=== PATIENT | female | born 1990 ===

== ENCOUNTER 2018-07-07 16:39 | Observation (INO) ==
[2018-07-07 17:28] LABS: Bilirubin,Urine Negative (Negative); Blood,Urine Negative (Negative); Clarity,Urine Clear (Clear); Color,Urine Yellow (Yellow); Glucose,Urine (UA) 100 mg/dL (Normal); Ketones,Urine Negative (Negative); Leukocyte Esterase,Urine Negative (Negative); Nitrite,Urine Negative (Negative); Protein,Urine Negative (Neg-Trace); Specific Gravity,Urine 1.007 (1.010-1.025); Urobilinogen,Urine Normal (Normal)
[2018-07-07 17:37] LABS: Amphetamine Screen,Urine Negative ng/mL (Cutoff=1000); Barbiturate Screen,Urine Negative ng/mL (Cutoff=200); Benzodiazepines Screen,Urine Negative ng/mL (Cutoff=200); Cannabinoid Screen,Urine Negative ng/mL (Cutoff = 50); Cocaine Screen,Urine Negative ng/mL (Cutoff= 300); Opiate Screen,Urine Negative ng/mL (Cutoff=300); Phencyclidine Screen,Urine Negative ng/mL (Cutoff=25)
[2018-07-07] MEDS ORDERED: Terbutaline 1 MG/ML VIAL SQ ONE ×2 (17:57→18:05)
[2018-07-07 18:16] LABS: Candida DNA Not Detected (Not Detect); Gardnerella DNA Not Detected (Not Detect); Trichomonas DNA Not Detected (Not Detect)
--- NOTE | 2018-07-07 18:53 | Discharge Summary ---
Date of Encounter: 07/07/18 Time of Encounter: 18:52 - Discharge Diagnosis (1) 33 weeks gestation of Priority: Primary Status: Acute Comments: Admitted to observation for complaint of watery discharge and pressure (2) NST (non-stress test) reactive Priority: Secondary Status: Acute Comments: FHR 145 bpm, moderate variability, +15 x 15 accels, no decels. (3) uterine contractions in third trimester, antepartum Priority: Secondary Status: Acute Comments: Initially contractions were noted every 2-4 minutes with periods of high- frequency low amplitude uterine activity. 1 dose of subcutaneous Brethine was given and contractions resolved. Cervix is 1 cm thick and high without change in greater than one hour Plan of care discussed with Dr. Michel (4) Vaginal discharge during Priority: Secondary Status: Acute Comments: Patient with complaint of watery discharge since 9:30 this morning No fluid noted in vaginal vault on sterile speculum exam. Nitrazine negative, fern negative, vaginosis panel negative. Qualifiers: Trimester: third trimester Qualified Code(s): O26.893 - Other specified related conditions, third trimester; N89.8 - Other specified noninflammatory disorders of vagina - Discharge Medications Home Medications: Famotidine [Pepcid] 40 mg PO DAILY 07/07/18 [History] Pnv Cmb#21/Iron/Folic Acid [ Complete Caplet] 1 each PO DAILY 07/07/18 [History] Allergies/Adverse Reactions: Allergy/AdvReac Type Severity Reaction Status Date / Time No Known Allergies Allergy Verified 07/07/18 17:09 Data Procedures and tests throughout hospitalization: Laboratory Tests 07/07/18 07/07/18 07/07/18 17:10 17:10 17:10 Urine Color Yellow Urine Clarity Clear Urine pH 7.0 Ur Specific [place] 1.007 L Urine Protein Negative Urine Glucose (UA) 100 H Urine Ketones Negative Urine Blood Negative Urine Nitrite Negative Urine Bilirubin Negative Urine Urobilinogen Normal Ur Leukocyte Esterase Negative Ur Culture Indicated? NO Urine Opiates Screen Negative Ur Barbiturates Screen Negative Ur Phencyclidine Scrn Negative Ur Amphetamines Screen Negative U Benzodiazepines Scrn Negative Urine Cocaine Screen Negative U Marijuana (THC) Screen Negative Ur Drug Screen Interp See Below Sondra species DNA Not Detected Gardnerella DNA Probe Not Detected Trichomonas DNA Probe Not Detected Labs on day of discharge: Labs from last 24 hours 07/07/18 07/07/18 07/07/18 17:10 17:10 17:10 Urine Color Yellow Urine Clarity Clear Urine pH 7.0 Ur Specific [place] 1.007 L Urine Protein Negative Urine Glucose (UA) 100 H Urine Ketones Negative Urine Blood Negative Urine Nitrite Negative Urine Bilirubin Negative Urine Urobilinogen Normal Ur Leukocyte Esterase Negative Ur Culture Indicated? NO Urine Opiates Screen Negative Ur Barbiturates Screen Negative Ur Phencyclidine Scrn Negative Ur Amphetamines Screen Negative U Benzodiazepines Scrn Negative Urine Cocaine Screen Negative U Marijuana (THC) Screen Negative Ur Drug Screen Interp See Below Sondra species DNA Not Detected Gardnerella DNA Probe Not Detected Trichomonas DNA Probe Not Detected Date of admission: 07/07/18 16:39 Discharging clinician: Zari Flood Anticipated date of discharge: 07/07/18 - Patient Status Disposition: Home, Self-Care Condition: Good Functional capacity at discharge: independent ambulation Overall status at discharge: patient is progressing back to baseline - Discharge Instructions - Diet and Activity Activity: resume usual activities as tolerated Diet: regular diet Hospital Course [employer]PER[employer] Hospital course: Laurel is a at 33 weeks and 3 days who arrived today with complaints of watery discharge that started at 9:30 this morning. States she had to change her panties several times and then eventually put on a maxi pad. She denies bleeding and reports positive movement. She denies any problem with this up until now. She does deny contractions on arrival. Sterile speculum exam was completed with no pooling of fluid in the vaginal vault. Nitrazine was negative fern was negative sample was obtained for vaginosis panel and sent to the lab. Vaginosis panel results were also negative. Cervical exam was 1 thick and high there was no change in greater than an hour. Irregular contractions were noted on monitor. Dr. Michel was consulted and 1 dose of subcutaneous Brethine was ordered. Her contractions stopped after that dose and cervix was without change on recheck. Patient is to follow-up with her OB provider as previously scheduled for her routine care Time Attestation: Total time spent providing and/or coordinating discharge services: Time Spent: Less than 30 minutes Exam - Constitutional General appearance IM: A&O X 3, pleasant, no acute distress, answers questions appropriately - Respiratory Respiratory exam: Present: CTAB - Cardiovascular Cardiovascular exam IM: Present: RRR, +S1, +S2 - GI/Abdominal GI/Abdominal exam IM: normal bowel sounds - Rectal Rectal exam: deferred - Extremities Exam Extremities exam IM: Present: full ROM, normal capillary refill, normal inspection - Neurological Exam Neurological exam: alert, normal gait, oriented X3 - VTE Reasons for not Prescribing Prophylaxis: Treatment not Indicated - Low risk for VTE
== END 2018-07-07 19:19 | disposition home or self-care (01) ==
LOC: 1NENULAB
PROVIDERS: ADMIT Obstetrics & Gynecology; ATTEND Obstetrics & Gynecology

== ENCOUNTER 2018-07-29 11:32 | Observation (INO) ==
--- NOTE | 2018-07-29 14:29 | Event Note ---
Date of Encounter: 07/29/18 Time of Encounter: 14:27 Helen is a 28-year-old female at 36 weeks and 4 days, who presents to labor and delivery complaining of contractions. Patient states that they have been progressing. This patient has a history of a previous section for breech presentation. At her last ultrasound a few days ago baby was macrosomic at 7 pounds. Patient had been considering repeat section. At this point we had a discussion about . At this early gestation she states that she would like to consider having a vaginal delivery. If she goes full-term she wishes a repeat section. We had a long discussion about this. The risks, complications of a were discussed including uterine rupture, demise as well as risk of with mother. Patient understood all this completely and at this point would like to consider it. On examination her cervix was 1 cm thick and baby was high. Contractions are every 3-6 minutes. Patient will be monitored for cervical change and we will make a decision. If she does not make any cervical change after extended monitoring and ambulating she will be discharged to home.
[2018-07-29 17:11] LABS: Bilirubin,Urine Negative (Negative); Blood,Urine Negative (Negative); Clarity,Urine Clear (Clear); Color,Urine Yellow (Yellow); Glucose,Urine (UA) Normal (Normal); Ketones,Urine 40 mg/dL (Negative); Leukocyte Esterase,Urine Negative (Negative); Nitrite,Urine Negative (Negative); Protein,Urine 30 mg/dL (Neg-Trace); Specific Gravity,Urine 1.014 (1.010-1.025); Urobilinogen,Urine Normal (Normal)
[2018-07-29 17:14] LABS: Bacteria,Urine None Seen per hpf (None-Few); Hyaline Casts,Urine None Seen per lpf (None-Few); RBC,Urine 0-3 per hpf (0-3); Squamous Epithelial Cell,Urine Many per lpf (None-Few); WBC,Urine 0-3 per hpf (0-3)
[2018-07-29 17:21] LABS: Amphetamine Screen,Urine Negative ng/mL (Cutoff=1000); Barbiturate Screen,Urine Negative ng/mL (Cutoff=200); Benzodiazepines Screen,Urine Negative ng/mL (Cutoff=200); Cannabinoid Screen,Urine Negative ng/mL (Cutoff = 50); Cocaine Screen,Urine Negative ng/mL (Cutoff= 300); Opiate Screen,Urine Negative ng/mL (Cutoff=300); Phencyclidine Screen,Urine Negative ng/mL (Cutoff=25)
--- NOTE | 2018-07-29 17:25 | Event Note ---
Date of Encounter: 07/29/18 Time of Encounter: 17:24 Pt doing well. Nursing reports no cervical change. Pt wishes to go home. Will discharge to home. Pt to follow up in the office.
== END 2018-07-29 17:22 | disposition home or self-care (01) ==
LOC: 1NENULAB
PROVIDERS: ADMIT Obstetrics & Gynecology; ATTEND Obstetrics & Gynecology

== ENCOUNTER → 2018-08-03 08:22 | Observation (INO) ==
--- NOTE | 2018-08-06 18:33 | Event Note ---
Date of Encounter: 08/02/18 Time of Encounter: 16:00 Helen seen on labor and delivery complaining of contractions. Patient been placed on the monitor. Patient was monitored by nursing. Her cervix was checked on admission. She was paola very irregularly. There was actually no change in her cervix. They were mild in strength. Patient had reactive tracing. Patient was allowed to walk. She came back to the room and her cervix was rechecked. There is no change in her cervix. Patient understood that an order for her to be delivered she would have to have cervical change. As everything looked good patient was discharged to home and was asked to follow-up in the office on Monday.
== END | disposition home or self-care (01) ==
LOC: 1NENULAB
PROVIDERS: ADMIT Registered Nurse; ATTEND Registered Nurse

== ENCOUNTER 2018-08-06 13:33 | Inpatient (IN) ==
[2018-08-06] MEDS ORDERED: Famotidine 20 MG/2 ML VIAL IVP ONE (14:01)
[2018-08-06] MEDS ORDERED: Metoclopramide 10 MG/2 ML VIAL IVP ONE (14:01)
[2018-08-06] MEDS ORDERED: Ringers Solution, Lactated 1,000 ML IVC ONE (14:01)
[2018-08-06 15:07] LABS: Amphetamine Screen,Urine Negative ng/mL (Cutoff=1000); Barbiturate Screen,Urine Negative ng/mL (Cutoff=200); Basophils % 0.2 %; Benzodiazepines Screen,Urine Negative ng/mL (Cutoff=200); Cannabinoid Screen,Urine Negative ng/mL (Cutoff = 50); Cocaine Screen,Urine Negative ng/mL (Cutoff= 300); Eosinophils # 0.1 K/mcL (0.0-0.6); Eosinophils % 0.4 %; Hematocrit 33.7 % (35.3-44.9); Hemoglobin 10.7 g/dL (11.5-15.4); Immature Granulocytes % 0.6 % (0-4); Lymphocytes # 2.4 K/mcL (0.6-4.6); Lymphocytes % 18.3 %; Mean Corpuscular HGB Conc 31.8 g/dL (31.6-35.5); Mean Corpuscular Volume 85.1 fL (83.0-100.0); Mean Platelet Volume 11.2 fL (9.4-12.4); Monocytes # 0.5 K/mcL (0.0-1.3); Monocytes % 3.6 %; Neutrophils # 9.9 K/mcL (1.6-8.9); Opiate Screen,Urine Negative ng/mL (Cutoff=300); Phencyclidine Screen,Urine Negative ng/mL (Cutoff=25); Platelet Count 293 K/mcL (140-400); Red Blood Count 3.96 M/mcL (3.82-4.97); Red Cell Distribution Width 13.2 % (11.5-14.5); Segmented Neutrophils % 76.9 %
[2018-08-06] MEDS ORDERED: CeFAZolin Premix DUPLEX 2,000 MG/50 ML BAG IVPB ONE (15:39)
--- NOTE | 2018-08-06 16:32 | Anesthesia Evaluation PreOp ---
Date of Encounter: 08/06/18 Time of Encounter: 16:05 - Past History Planned Operation: Spinal for Csection Cardiac History: Denies any Significant Hx Pulmonary History: Denies Any Significant HX ELECTRIC ORGAN INSPECTOR AND REPAIRER History: Denies Any Significant HX Other Medical History: GERD Anesthesia History: No Prior Anesthetic Complications, Past Anesthesia ([place] teeth without GA, previous csection) : Yes Alcohol Use: none Drug use: none Medications and Allergies Famotidine [Pepcid] 40 mg PO DAILY 07/07/18 [History] Pnv Cmb#21/Iron/Folic Acid [ Complete Caplet] 1 each PO DAILY 07/07/18 [History] Promethazine [Phenergan] 1 tab PO PRN PRN 08/06/18 [History] Allergy/AdvReac Type Severity Reaction Status Date / Time No Known Allergies Allergy Verified 07/07/18 17:09 - Meds/Allergy Pre-op Review Medications Reviewed: Yes Allergies Reviewed: Yes Beta Blockers on Current Med List: No Anesthesia Results - Labs 08/06/18 14:30 Anesthesia Exam BP 131/74 P 97 R 16 T 98.5 Height: 5'2" Weight: 98.9kg NPO (# of Hours): 8 Pain Scale: 0 - HEENT Pupil (Motor): Pupils equal Mallampati: II Teeth: Normal Oral Opening: Greater than 3 - ELECTRIC ORGAN INSPECTOR AND REPAIRER LOC: Oriented ELECTRIC ORGAN INSPECTOR AND REPAIRER Motor: Normal RUE, Normal LUE, Normal RLE, Normal LLE, Normal Face ELECTRIC ORGAN INSPECTOR AND REPAIRER Sensory: Normal: RUE, LUE, RLE, LLE, Face - Cardiac Rhythm: Regular Murmur: None JVD: No Carotid Bruit: No - Pulmonary Breath Sounds: bilateral Clear Respiratory Effort: Symmetrical Anesthesia Assess/Plan ASA Score: 2 Level of consciousness: Cooperative Anesthetic Plan: Spinal Autologous Blood: Yes Monitoring Plan: Standard Monitors Recovery Plan: PACU
--- NOTE | 2018-08-06 16:35 | OB/GYN History & Physical ---
Date of Encounter: 08/06/18 Time of Encounter: 16:33 Assessment and Plan (1) 37 weeks gestation of Current visit: Yes Status: Acute (2) Decreased movement Current visit: Yes Status: Acute Qualifiers: Fetus number: single or unspecified fetus Trimester: third trimester Qualified Code(s): O36.8130 - Decreased movements, third trimester, not applicable or unspecified (3) Oligohydramnios antepartum Current visit: Yes Status: Acute Patient scheduled for repeat section Qualifiers: Fetus number: single or unspecified fetus Qualified Code(s): O41.00X0 - Oligohydramnios, unspecified trimester, not applicable or unspecified (4) Previous section Current visit: Yes Status: Acute History of Present Illness Chief complaint: decreased movement HPI: Ms. Barreto is a 28 year old female presented to office today complaining of decreased movement. She is currently 37 weeks and 5 days. Ultrasound performed which showed an RAFA of 4. Patient is a scheduled repeat section for macrosomia. She is doing well having no complaints. She is paola irregularly. This patient has no drug allergies. She is currently on vitamins. She is no chronic medical conditions. Surgical history is significant for previous section for breech presentation. She has n o history of abnormal Pap smears, STDs or pelvic infections. Socially she denies tobacco, alcohol, illicit drug use. Family history significant for heart disease and lung cancer and diabetes. Obstetric history significant for one term delivery via section for breech presentation. Patient has an EDC of August 22. Past Med Surg Social Fam HX - Past Medical History Medical history: no medical history Psychiatric history: no psych history - Past Surgical History Surgical History: Additional surgical history: dental - Social History Smoking Status: Never smoker Smokeless Tobacco Status: No Alcohol use: none Drug use: none - Family History Mother Living Status: Still Living Hx Family Cardiac Disorders: Yes (cardiac history that patient is unaware what it is) Hx Family Respiratory Disorders: No Hx Family Cancer: No Hx Family GI Disorders: No Hx Family Endocrine Disorder: Yes (DM) Hx Family Neuromuscular Disorders: No Hx Family Neurologic Disorders: No Hx Family HEENT Disorders: No Hx Family Autoimmune Disorders: No Obstetrical History - Pregnancies : 3 Para: 1 Ab's: 1 Livin Medications and Allergies Famotidine [Pepcid] 40 mg PO DAILY 07/07/18 [History] Pnv Cmb#21/Iron/Folic Acid [ Complete Caplet] 1 each PO DAILY 07/07/18 [History] Promethazine [Phenergan] 1 tab PO PRN PRN 08/06/18 [History] Allergy/AdvReac Type Severity Reaction Status Date / Time No Known Allergies Allergy Verified 07/07/18 17:09 Review of System OB All systems PM: reviewed and no additional remarkable complaints except as stated Exam - Constitutional Constitutional: well developed, well nourished, no acute distress, average body habitus - HEENT HEENT: EOMI, PERRL - Neck Neck exam: full ROM, normal inspection - Lungs Respiratory exam: CTAB - Cardiovascular Cardiovascular exam: RRR - Abdomen Abdomen: Present: bowel sounds normal, gravid, non tender - Extremities Extremities exam: full ROM - Cervix Dilation: 3 Effacement: 50 Station: -2 - Uterus Uterus exam: Present: normal size Results Result Diagrams: 08/06/18 14:30 Abnormal lab results WBC 12.9 K/mcL (4.3-11.1) H 08/06/18 14:30 Hgb 10.7 g/dL (11.5-15.4) L 08/06/18 14:30 Hct 33.7 % (35.3-44.9) L 08/06/18 14:30 MCH 27.0 pg (28.0-33.3) L 08/06/18 14:30 Neutrophils # 9.9 K/mcL (1.6-8.9) H 08/06/18 14:30 All other labs normal. - VTE Reasons for not Prescribing Prophylaxis: Treatment not Indicated - Low risk for VTE
[2018-08-06] MEDS ORDERED: Lidocaine -MPF 2% 5 ML VIAL ONE (16:40)
[2018-08-06] MEDS ORDERED: *HR* Morphine Sulfate/PF 10 MG/10 ML AMPUL ONE (16:40)
[2018-08-06] MEDS ORDERED: Bupivacaine/PF 0.75% in Dex 2 ML AMPUL INFILT ONE (16:40)
[2018-08-06] MEDS ORDERED: Ringers Solution, Lactated 1,000 ML ONE (16:44)
[2018-08-06] MEDS ORDERED: Ondansetron 4 MG/2 ML VIAL ONE ×2 (17:26→17:33)
[2018-08-06] MEDS ORDERED: Dexamethasone 4 MG/ML VIAL ONE (17:26)
[2018-08-06] MEDS ORDERED: EPHEDrine 50 MG/ML VIAL ONE (17:28)
[2018-08-06] MEDS ORDERED: *HR* Oxytocin 10 UNIT/ML VIAL IM ONE (17:44)
--- NOTE | 2018-08-06 17:59 | Anesthesia Procedures ---
Date of Encounter: 08/06/18 Time of Encounter: 17:25 Procedures: Anesthesia - Epidural/Spinal Patient ID/Chart reviewed: Yes Patient examined: Yes OB Eval: Gestational age: 37 OB Eval: : 3 OB Eval: Hx Para: 1 Site Prep: Aseptic Technique, Sterile prep and drape, Povidone-Iodine 1% Patient position: upright Local Anesthetic: Lidocaine 1% Amount of Local Anesthetic used: 3 Interspace Used: L3-L4 Loss of Resistance (RESHMA): Yes Blood: No CSF: Yes Paresthesia: No Spinal Needle Gauge: 24 Spinal Dose: Bupivicaine 0.75% 1.6ml, Duramorph 300mcg Procedure: Spinal dose administered 2nd pass, L3-4 in sitting position. VSS. Pt tolerated well. T4 level achieved. Vitals + FHT's: See anesthesia record
[2018-08-06] MEDS ORDERED: *HR* OxyCODONE Immed Rel 5 MG TABLET PO PRN (18:06)
[2018-08-06] MEDS ORDERED: Ondansetron 4 MG/2 ML VIAL IVP PRN ×2 (18:06→20:54)
--- NOTE | 2018-08-06 18:26 | OB/GYN Procedure Note ---
Section - Date of procedure: 08/06/18 Preop diagnosis: other (oligohydramnios) Post-op diagnosis: same Procedure: repeat low transverse Surgeon: Sebastian Michel Quantitated Blood Loss: 400 Was there an veterinary technician assistant present: Yes Bottle Tester: Nish Mcclendon Anesthesia Type: Spinal section complications: none Disposition: Post floor Specimens: Placenta - (s) Infant A Infant Delivery Date: 08/06/18 Delivery Time: 17:44 Presentation: vertex Position: OA Route of delivery: other (Repeat section) Gender: Female Viability: Viable Pounds: 8 Ounces: 0 Gram Weight: 3.615 kg at 1 minute: 9 at 5 minutes: 9 Specimens collected: cord blood Placenta: spontaneous Cord: 3 umbilical vessels - Narrative Narrative: Patient was taken to the operating room with IV in place. She was given spinal anesthesia. She was then prepped and draped in the usual sterile fashion. Once adequate analgesia was achieved a Pfannenstiel incision was made through patient's previous scar. Was carried sharply through the subcutaneous taste and fatty tissue until the fascial layers reached. The fascia was then nicked in the midline and incised bilaterally with Jacobo scissors. It is then dissected vertically for adequate exposure. Rectus abdominis musculature is and midline. The peritoneum was sharply entered. A bladder blade was placed at the inferior margin incision. The bladder flap was then developed. The uterine musculature was very thin. We could see baby through the muscle in the lower uterine segment. A low transverse incision was made higher up on the uterus because of how thin the muscle was. Incision was bluntly extended. The was then delivered without any difficulty. There was absolutely no fluid around baby. cried immediately upon delivery cord was cut to cut. The was passed to NICU team in attendance. Cord blood was obtained. The placenta was delivered via uterine massage and lavage. Uterus is delivered at this point. The uterus contracted down nicely. The lower uterine segment was paperthin. We attempted to close. It would tear easily. The uterus was replaced back in the pelvic cavity in order to close the uterus to take all pressure off the incision. In doing this we were able to close the incision. Urine was clear throughout the entire case. At the end of this portion procedure the pelvic cavity was rinsed thoroughly with sterile water 2. C no bleeding the procedure was terminated. Sponge needle [place] counts correct 2. The subfascial region was examined and there was also no bleeding. The fascia was then closed with 0 Vicryl suture running nonlocking fashion. The suprafascial region of concern sterile water 2 all bleeders cauterized. 3 separate stitches were placed to reapproximate the subcutaneous taste that. The skin was closed [place]. Patient tolerated procedure well. Blood loss is 400 mL. At the end the case I discussed with patient and her to wait at least 1 year to allow the uterus to heal after the surgery because of how thin the muscular wall was.
[2018-08-06] MEDS ORDERED: Oxytocin 20 units/ LR 1000 mL 20 UNIT/1,000 ML BAG IVC ONE (20:53)
[2018-08-06] MEDS ORDERED: Sennosides 8.6 MG TABLET PO PRN (20:54)
[2018-08-06] MEDS ORDERED: Oxytocin 20 units/ LR 1000 mL 20 UNIT/1,000 ML BAG IVC SCH (20:54)
[2018-08-06] MEDS ORDERED: ceFAZolin 2,000 MG in Water for inj. (sterile) 20 ML IVP ONE (20:54)
[2018-08-06] MEDS ORDERED: Simethicone 80 MG TAB.CHEW PO PRN (20:54)
[2018-08-06] MEDS ORDERED: Metoclopramide 10 MG/2 ML VIAL IVP PRN (20:54)
--- NOTE | 2018-08-06 21:19 | Anesthesia Evaluation Post Op ---
Date of Encounter: 08/06/18 Time of Encounter: 19:30 - Vital Signs Vital Signs: BP 123/59 P 115 R 16 T 98.1 - Lungs Lungs: Clear Ascult./Percussion - Airway Airway: Non-obstructed - Cardiovascular Regular Rate - Mental Status Mental Status: Alert & Oriented, Answers Appropriately - Pain Pain Scale: 4 Pain Scale used: Numeric (1 - 10) - Nausea Vomiting Nausea Vomiting: Not Present - Hydration Hydration: NPO, Owens catheter - Discharge PostOp Status: Transfer Patient to floor
[2018-08-07] MEDS: Ibuprofen 600 MG TABLET PO PRN ×2 (00:12→20:21)
[2018-08-07] MEDS: Prenatal Vit/FA 1 EACH TABLET PO SCH (07:58)
[2018-08-07 08:09] LABS: Basophils % 0.2 %; Eosinophils % 0.2 %; Hematocrit 28.4 % (35.3-44.9); Hemoglobin 9.3 g/dL (11.5-15.4); Immature Granulocytes % 0.4 % (0-4); Lymphocytes # 3.4 K/mcL (0.6-4.6); Lymphocytes % 21.8 %; Mean Corpuscular HGB Conc 32.7 g/dL (31.6-35.5); Mean Corpuscular Hemoglobin 27.7 pg (28.0-33.3); Mean Corpuscular Volume 84.5 fL (83.0-100.0); Monocytes # 0.7 K/mcL (0.0-1.3); Monocytes % 4.2 %; Neutrophils # 11.4 K/mcL (1.6-8.9); Platelet Count 271 K/mcL (140-400); Red Blood Count 3.36 M/mcL (3.82-4.97); Red Cell Distribution Width 13.2 % (11.5-14.5); Segmented Neutrophils % 73.2 %
--- NOTE | 2018-08-07 09:18 | OB/GYN Progress Note ---
Date of Encounter: 08/07/18 Time of Encounter: 09:17 - Assessment and Plan (1) Status post repeat low transverse section Current Visit: Yes Status: Acute Meeting all day 1 milestones Continue routine care Anticipate discharge home tomorrow (2) Breast feeding status of mother Current Visit: Yes Status: Acute consult when necessary Subjective - Subjective Principal diagnosis: s/p RLTCS Interval history: Feeling well. Out of bed without dizziness. Some abdominal discomfort-using binder. Cramping minimal, using ibuprofen and Percocet. every 2- 3 hours. Some nipple soreness. Voiding without difficulty. Passing flatus, no BM yet. Tolerating clear liquid diet. Patient reports: appetite normal, voiding normally, pain well controlled, ambulating normally : doing well, nursing well Objective - Vital Signs Latest vital signs: Vital Signs Temp Pulse Resp BP Pulse Ox 08/07/18 07:36 97.4 F L 82 14 109/68 96 08/07/18 04:00 16 08/07/18 03:55 97.7 F 80 14 118/67 99 08/07/18 00:15 97.9 F 89 14 120/56 100 08/06/18 23:25 97.4 F L 87 14 132/62 100 08/06/18 22:15 97.5 F L 82 14 127/55 99 08/06/18 21:45 98.3 F 88 14 127/65 98 08/06/18 21:15 98.2 F 95 14 122/63 99 Intake and Output 08/06/18 08/07/18 08/07/18 23:59 07:59 15:59 Intake Total 100 / 100 Output Total 100 / 100 300 / 300 Balance 100 / 100 -100 / -100 -300 / -300 Intake: IV Fluids 100 / 100 Ancef 2,000 MG In 0.9 % Sodium 100 / 100 Chloride 100 ML @ 200 mls/hr IVPB Q8HR [facility] Rx#:[id number] Output: Urine 300 / 300 Catheter 100 / 100 Other: Weight 91.58 kg Patient Weight 08/07/18 23:59 Weight 91.58 kg - Exam Lungs: bilateral: normal Chest: Normal S1, Normal S2 Extremities: Present: normal Abdomen: Present: normal appearance, soft Incision: Present: normal, dry, dressed Uterus: Present: normal, firm Fundal Height: 4 (Below and midline) - Labs Labs: Laboratory Results - last 24 hr 08/06/18 08/06/18 08/07/18 14:30 14:30 07:54 WBC 12.9 H 15.6 H RBC 3.96 3.36 L Hgb 10.7 L 9.3 L Hct 33.7 L 28.4 L MCV 85.1 84.5 MCH 27.0 L 27.7 L MCHC 31.8 32.7 RDW 13.2 13.2 Plt Count 293 271 MPV 11.2 11.0 Immature Gran % 0.6 0.4 Seg Neutrophils % 76.9 73.2 Lymphocytes % 18.3 21.8 Monocytes % 3.6 4.2 Eosinophils % 0.4 0.2 Basophils % 0.2 0.2 Neutrophils # 9.9 H 11.4 H Lymphocytes # 2.4 3.4 Monocytes # 0.5 0.7 Eosinophils # 0.1 0.0 Basophils # 0.0 0.0 Urine Opiates Screen Negative Ur Barbiturates Screen Negative Ur Phencyclidine Scrn Negative Ur Amphetamines Screen Negative U Benzodiazepines Scrn Negative Urine Cocaine Screen Negative U Marijuana (THC) Screen Negative Ur Drug Screen Interp See Below
[2018-08-07] MEDS: *HR* OxyCODONE/APAP 5/325 TABLET PO PRN ×2 (10:46→17:57)
[2018-08-08] MEDS: Ibuprofen 600 MG TABLET PO PRN (01:21)
[2018-08-08] MEDS: *HR* OxyCODONE/APAP 5/325 TABLET PO PRN ×2 (05:34→09:36)
[2018-08-08 09:04] VITALS: BP 110/62
[2018-08-08] MEDS: Prenatal Vit/FA 1 EACH TABLET PO SCH (09:29)
--- NOTE | 2018-08-08 09:29 | Discharge Summary ---
Date of Encounter: 08/08/18 Time of Encounter: 09:30 - Discharge Diagnosis (1) Breast feeding status of mother Priority: Secondary Status: Acute (2) Status post repeat low transverse section Priority: Primary Status: Acute Comments: Pt meeting all post-op milestones. Pain well controlled. Tolerating regular diet, passing flatus, and voiding. Reports good mood. - Discharge Medications Prescriptions: Ibuprofen [Motrin] 600 mg PO Q6HR PRN #30 tablet PRN Reason: Cramping OxyCODONE/APAP 5/325 [Percocet 5/325 MG] 1 each PO Q6HR PRN 7 Days #28 tablet PRN Reason: Moderate pain 4-6 Docusate [Colace] 100 mg PO BID #60 capsule Ferrous Sulfate 325 mg PO DAILY@0800 #30 tablet Home Medications: Famotidine [Pepcid] 40 mg PO DAILY 07/07/18 [History] Pnv Cmb#21/Iron/Folic Acid [ Complete Caplet] 1 each PO DAILY 07/07/18 [History] Docusate [Colace] 100 mg PO BID #60 capsule 08/08/18 [Rx] Ferrous Sulfate 325 mg PO DAILY@0800 #30 tablet 08/08/18 [Rx] Ibuprofen [Motrin] 600 mg PO Q6HR PRN #30 tablet 08/08/18 [Rx] OxyCODONE/APAP 5/325 [Percocet 5/325 MG] 1 each PO Q6HR PRN 7 Days #28 tablet 08/08/18 [Rx] Simethicone [Gas-X] 80 mg PO TID PRN tab.chew 08/08/18 [Rx] Allergies/Adverse Reactions: Allergy/AdvReac Type Severity Reaction Status Date / Time No Known Allergies Allergy Verified 07/07/18 17:09 Data Procedures and tests throughout hospitalization: Laboratory Tests 08/06/18 08/06/18 08/07/18 14:30 14:30 07:54 WBC 12.9 H 15.6 H RBC 3.96 3.36 L Hgb 10.7 L 9.3 L Hct 33.7 L 28.4 L MCV 85.1 84.5 MCH 27.0 L 27.7 L MCHC 31.8 32.7 RDW 13.2 13.2 Plt Count 293 271 MPV 11.2 11.0 Immature Gran % 0.6 0.4 Seg Neutrophils % 76.9 73.2 Lymphocytes % 18.3 21.8 Monocytes % 3.6 4.2 Eosinophils % 0.4 0.2 Basophils % 0.2 0.2 Neutrophils # 9.9 H 11.4 H Lymphocytes # 2.4 3.4 Monocytes # 0.5 0.7 Eosinophils # 0.1 0.0 Basophils # 0.0 0.0 Urine Opiates Screen Negative Ur Barbiturates Screen Negative Ur Phencyclidine Scrn Negative Ur Amphetamines Screen Negative U Benzodiazepines Scrn Negative Urine Cocaine Screen Negative U Marijuana (THC) Screen Negative Ur Drug Screen Interp See Below Date of admission: 08/06/18 13:33 Primary care physician: PCP NONE Discharging clinician: Keri Le Anticipated date of discharge: 08/08/18 - Patient Status Disposition: Home, Self-Care Condition: Good Functional capacity at discharge: independent ambulation Overall status at discharge: patient is progressing back to baseline - Discharge Instructions Follow Up With: NONE,PCP [Primary Care Provider] - Sebastian Michel MD [Partnered Physician] - - Diet and Activity Activity: increase activity as tolerated Diet: regular diet Hospital Course Reason for admission: section Delivery: section Episiotomy: none Laceration: none Other procedures: none complications: none Discharge diagnosis: IUP at term delivered baby: female Hospital course: - Date of procedure: 08/06/18 Preop diagnosis: other (oligohydramnios) Post-op diagnosis: same Procedure: repeat low transverse Surgeon: Sebastian Michel Quantitated Blood Loss: 400 Was there an payroll human resources assistant present: Yes Quality Controller: Nish Mcclendon Anesthesia Type: Spinal section complications: none Disposition: Post floor Specimens: Placenta - (s) Infant A Infant Delivery Date: 08/06/18 Delivery Time: 17:44 Presentation: vertex Position: OA Route of delivery: other (Repeat section) Gender: Female Viability: Viable Pounds: 8 Ounces: 0 Gram Weight: 3.615 kg at 1 minute: 9 at 5 minutes: 9 Specimens collected: cord blood Placenta: spontaneous Cord: 3 umbilical vessels Time Attestation: Total time spent providing and/or coordinating discharge services: Time Spent: Less than 30 minutes - VTE Reasons for not Prescribing Prophylaxis: Treatment not Indicated - Low risk for VTE Documentation of Mechanical Device: Intermittent pneumatic compression device Exam - Constitutional Vitals: Temp Pulse Resp BP Pulse Ox 97.9 F 89 16 110/62 100 08/08/18 09:03 08/08/18 09:03 08/08/18 09:03 08/08/18 09:03 08/07/18 20:20 General appearance IM: A&O X 3 - Respiratory Respiratory exam: Present: CTAB - Cardiovascular Cardiovascular exam IM: Present: RRR - GI/Abdominal GI/Abdominal exam IM: soft, no peritoneal signs Incision: dry (urban intact, no s/sx infection), intact - External exam: normal external exam Uterine Tone: Firm Uterus Position: 2 Fingers Below Umbilicus - Extremities Exam Extremities exam IM: Present: normal inspection - Neurological Exam Neurological exam: normal gait - Psychiatric Additional comments: reports good mood - Other Additional findings: OARRS reviewed
== END 2018-08-08 11:02 | disposition home or self-care (01) | DRG 787 ==
LOC: 1NENULAB 13:33 → 1NENUOBS 20:53
PROVIDERS: ADMIT Obstetrics & Gynecology; ATTEND Obstetrics & Gynecology